=== PATIENT | female | born 1960 | race Caucasian/White ===

== ENCOUNTER → 2020-05-14 07:50 | Outpatient (CLI) | payer BC, SELFPAY ==
--- NOTE | ~2020-05-14 | MMUS_ITS ---
EXAMINATION: MM diagnostic tyrone LT w js, US breast LT limited HISTORY: Rule out benign-appearing left breast masses TECHNIQUE: Additional 3-D tomosynthesis images of the left breast were performed and synthetic 2-D im ages were generated. CAD analysis was submitted and interpreted. High resolution left breast ultrasou nd was performed. COMPARISON: Comparison to multiple prior studies sequentially, with oldest reviewed study dated 11/2014. BREAST PARENCHYMAL COMPOSITION: BREAST PARENCHYMAL COMPOSITION: There are scattered areas of fibroglandular density. FINDINGS: MAMMOGRAPHIC FINDINGS: The left breast is stable. Benign-appearing left breast masses are not significantly changed from rec ent examinations. ULTRASOUND: Left breast ultrasound: There are simple cysts of the left breast at 6 and 9:00 position, largest at 9:00, 5 cm from the nipp le measuring 9 mm maximum dimension. No suspicious masses to suggest malignancy. IMPRESSION: 1. No evidence for malignancy in the left breast. Benign findings. 2. Routine yearly screening mammogram and regular clinical breast examination are recommended. BI-RADS Category 2: Benign finding(s). Reviewed, dictated and finalized at location A. IMPRESSION: 1. No evidence for malignancy in the left breast. Benign findings. 2. Routine yearly screening mammogram and regular clinical breast examination a re recommended. BI-RADS Category 2: Benign finding(s).
== END ==
PROVIDERS: PCP Family Medicine; Visit Provider Obstetrics & Gynecology
DX: R92.8 Other abnormal and inconclusive findings on diagnostic imaging of breast (principal)
CPT/HCPCS: 76642; 77061; 77065; G0279

== ENCOUNTER → 2020-11-26 16:40 | Outpatient (CLI) | payer BC, SELFPAY ==
--- NOTE | ~2020-11-26 | MM_ITS ---
EXAMINATION: MM screening [facility] BI w js HISTORY: Screening mammogram TECHNIQUE: Craniocaudal and mediolateral oblique 3-D tomosynthesis images were obtained and synthetic 2-D images were generated. CAD analysis was submitted and interpreted. COMPARISON: 05/14/2020, 08/23/2019, 08/06/2019, 08/03/2018 BREAST PARENCHYMAL COMPOSITION: The breasts are heterogeneously dense, which may obscure small masses . FINDINGS: Stable left breast masses are noted, consistent with benign findings. There is no evidence of suspicious mass, calcification, or architectural distortion to suggest malignancy in either breast . There has been no suspicious interval change. IMPRESSION: 1. No mammographic evidence of malignancy. 2. Recommend routine screening mammography in one year. BI-RADS Category 2: Benign finding(s). Reviewed, dictated and finalized at location A. BLOWER
== END ==
PROVIDERS: Visit Provider Advanced Practice Midwife
DX: Z12.31 Encounter for screening mammogram for malignant neoplasm of breast (principal)
CPT/HCPCS: 77063; 77067

== ENCOUNTER → 2021-12-03 16:27 | Outpatient (CLI) | payer BC, SELFPAY ==
--- NOTE | ~2021-12-03 | MM_ITS ---
EXAMINATION: MM screening tyrone BI w js HISTORY: Screening TECHNIQUE: Craniocaudal and mediolateral oblique 3-D tomosynthesis images were obtained and synthetic 2-D images were generated. CAD analysis was submitted and interpreted. COMPARISON: Comparison to multiple prior studies sequentially, with oldest reviewed study dated 07/04. BREAST PARENCHYMAL COMPOSITION: The breasts are heterogeneously dense, which may obscure small masses . FINDINGS: Benign-appearing left breast mass is stable. There is no evidence of suspicious mass, calci fication, or architectural distortion to suggest malignancy in either breast. There has been no suspi cious interval change. IMPRESSION: 1. No mammographic evidence of malignancy. 2. Recommend routine screening mammography in one year. BI-RADS Category 2: Benign finding(s). Reviewed, dictated and finalized at location A. ET ENGINEER
== END ==
PROVIDERS: Visit Provider Advanced Practice Midwife
DX: Z12.31 Encounter for screening mammogram for malignant neoplasm of breast (principal)
CPT/HCPCS: 77063; 77067

== ENCOUNTER 2022-03-18 00:12 | Day surgery (SDC) | payer BC, SELFPAY ==
[2022-03-02 14:08] VITALS: BMI 28.4
--- NOTE | 2022-03-17 15:05 | WPDANESEPPF ---
Anes - Initial Pre Proc Eval Procedure: Operation Date: 03/18/22 08:00 Proposed Procedures p Screening Colonoscopy - Kaushik Brown MD Date/Time: 03/17/22 15:05 Surgeon: Kaushik Brown MD Pre Op Diagnosis: neoplasm screening Patient Data Age: 61 Gender: F Height: 1.68 m Weight: 80 kg Allergies Allergy/AdvReac Type Severity Reaction Status Date / Time Penicillins AdvReac Intermediate Other Verified 03/18/22 06:55 Home Medications Medication Instructions Recorded Confirmed Type estradiol 0.01% (0.1 mg/gram) 1 g vaginal WEEKLY 11/05/20 03/02/22 History vaginal cream (Estrace) atorvastatin 10 mg tablet 10 mg PO DAILY #30 tabs 09/23/21 03/02/22 Rx losartan 50 mg tablet 50 mg PO DAILY #90 tabs 01/11/22 03/02/22 Rx ascorbic acid (vitamin C) 500 mg 500 mg PO DAILY 03/02/22 03/02/22 History tablet cholecalciferol (vitamin D3) 25 25 mcg PO DAILY 03/02/22 03/02/22 History mcg (1,000 unit) tablet (Vitamin D3) cetirizine 5 mg-pseudoephedrine ER 1 tablet PO Q12H #60 tabs 03/16/22 03/18/22 Rx 120 mg tablet,extended release,12hr (Zyrtec-D) Patient hx anesthesia problems: none Family hx anesthesia problems: none Results Review: All pre-operative results and documents have been reviewed as part of the pre-operative evaluation. [facility] Past Medical History Medical History (Updated 03/17/22 @ 15:06 by Deandre Lopez MD) BMI 29.0-29.9,adult COVID-19 Essential (primary) hypertension Hyperlipidemia Hypothyroid Overweight (BMI 25.0-29.9) Surgical History Surgical History H/O tubal ligation History of kidney surgery Family History Family History Father CHF (congestive heart failure) Lung cancer Hypertension Thyroid activity decreased Sibling Leukemia Hypertension Mother Hypertension Social History Social History Smoking packs per day: 0.5 Smoking cigarettes per day: 10.0 Years smoked: 8 Smoking pack-years: 4.00 Smoking status: Former smoker Tobacco type: cigarettes Second hand tobacco smoke exposure: Yes Alcohol intake: former Substance use: never Substance use type: does not use Living arrangements: with family Additional occupation/education comments: [employer] Gender identity (if verbalized by the patient): Female Spiritual care concerns: No Anes - Eval Final PreProcedure Day of Procedure 03/17/22 15:05 Patient weight: overweight Heart: regular rate and rhythm Lungs: clear to auscultation and normal air movement Airway: Mallampati scale class II Neurological: alert and oriented Last oral intake: >/= 8 hours ASA classification: II Emergent: no Anesthetic plan: proceed Anesthesia type and monitoring: general GIVS Results Review: All pre-operative results and documents have been reviewed as part of the pre-operative evaluation. Informed Consent: The patient's anesthetic plan and its attendant risks and benefits were discussed with the patient/family/POA. Questions were solicited and answers provided to the satisfaction of the patient/family/POA.
[2022-03-18 06:57] VITALS: BP 149/81; PULSE 86; RESP 20; TEMP 36.2; O2SAT 99; BMI 28.8
[2022-03-18] MEDS: LACTATED RINGERS 1,000 ML 150 ML IV CONT (07:06)
--- NOTE | 2022-03-18 07:45 | PM.IMHP ---
H&P: HPI History of Present Illness Date/Time: 03/18/22 07:45 Chief Complaint: Neoplasia screening. Narrative: This is a 61-year-old white female patient presents for neoplasia screening. Patient's current weight appetite bowel movements are normal. She denies abdominal pain. She has had no bleeding. Family history is noncontributory. Patient presents today for neoplasia screening. Review of Systems Review of Systems: Review of systems noncontributory. [facility] Past Medical History Medical History (Updated 03/17/22 @ 15:06 by Deandre Lopez MD) BMI 29.0-29.9,adult COVID-19 Essential (primary) hypertension Hyperlipidemia Hypothyroid Overweight (BMI 25.0-29.9) Surgical History Surgical History H/O tubal ligation History of kidney surgery Family History Family History Father CHF (congestive heart failure) Lung cancer Hypertension Thyroid activity decreased Sibling Leukemia Hypertension Mother Hypertension Social History Social History Smoking packs per day: 0.5 Smoking cigarettes per day: 10.0 Years smoked: 8 Smoking pack-years: 4.00 Smoking status: Former smoker Tobacco type: cigarettes Second hand tobacco smoke exposure: Yes Alcohol intake: former Substance use: never Substance use type: does not use Living arrangements: with family 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[employer] Gender identity (if verbalized by the patient): Female Spiritual care concerns: No Meds Home Medications and Allergies Home Medications Medication Instructions Recorded Confirmed Type estradiol 0.01% (0.1 mg/gram) 1 g vaginal WEEKLY 11/05/20 03/02/22 History vaginal cream (Estrace) atorvastatin 10 mg tablet 10 mg PO DAILY #30 tabs 09/23/21 03/02/22 Rx losartan 50 mg tablet 50 mg PO DAILY #90 tabs 01/11/22 03/02/22 Rx ascorbic acid (vitamin C) 500 mg 500 mg PO DAILY 03/02/22 03/02/22 History tablet cholecalciferol (vitamin D3) 25 25 mcg PO DAILY 03/02/22 03/02/22 History mcg (1,000 unit) tablet (Vitamin D3) cetirizine 5 mg-pseudoephedrine ER 1 tablet PO Q12H #60 tabs 03/16/22 03/18/22 Rx 120 mg tablet,extended release,12hr (Zyrtec-D) Allergies Allergy/AdvReac Type Severity Reaction Status Date / Time Penicillins AdvReac Intermediate Other Verified 03/18/22 06:55 Vital Signs Vital Signs - 24 hr 03/18/22 06:57 Temperature 97.2 F L Pulse Rate 86 Respiratory Rate 20 Blood Pressure 149/81 H Pulse Oximetry 99 Oxygen Delivery Room Air Exam Narrative: Physical exam reveals patient to be alert. Vital signs stable. HEENT exam is unremarkable. Patient is anicteric. Lungs are clear to auscultation and percussion. Heart is without murmur or extra sounds. Abdominal exam bowel sounds are present soft nontender with no organomegaly. Digital external rectal exam is normal. Assessment and Plan Assessment and plan (1) Screening for malignant neoplasm of colon: Code(s): Z12.11 - Encounter for screening for malignant neoplasm of colon Status: Acute Assessment and Plan: Patient presents today for screening colonoscopy. She appears to be at average risk for colon polyps.
[2022-03-18 08:19] VITALS: PULSE 94; RESP 18; O2SAT 98
[2022-03-18 08:29] VITALS: BP 140/75; PULSE 89; RESP 17; O2SAT 100
[2022-03-18 08:39] VITALS: BP 130/74; PULSE 78; RESP 21; O2SAT 100
== END 2022-03-18 08:48 | disposition home or self-care (01) ==
PROVIDERS: PCP Family Medicine; Referring Provider Nurse Practitioner Family; Visit Provider Internal Medicine Gastroenterology
PROC: 0DJD8ZZ Inspection of Lower Intestinal Tract, Via Natural or Artificial Opening Endoscopic (ICD-10-PCS; CPT 45378; principal; 2022-03-18 08:00)
DX: Z12.11 Encounter for screening for malignant neoplasm of colon (principal); K64.8 Other hemorrhoids; I10 Essential (primary) hypertension; E78.5 Hyperlipidemia, unspecified; E03.9 Hypothyroidism, unspecified; Z86.16 Personal history of COVID-19; Z87.891 Personal history of nicotine dependence
CPT/HCPCS: 45378; J2704; J7120

== ENCOUNTER → 2022-09-08 15:55 | Outpatient (CLI) | payer BC, SELFPAY ==
--- NOTE | ~2022-09-08 | DEXA_ITS ---
Bone Density Report Name: PATRICIO ALVAREZ Age: 61 Sex: Female Ethnicity: White Date of : 1960 Indication: osteopenia; height loss; postmenopausal Referring Provider: Jasmyn Baeza Study: Bone densitometry was performed. Exam Date: September 08, 2022 Accession number: [id number] Bone Density: Region BMD T-score Z-score Classification AP Spine (L1-L4) 0.855 -1.7 -0.1 Osteopenia Femoral Neck (Left) 0.758 -0.8 0.6 Normal Total Hip (Left) 0.928 -0.1 1.0 Normal Femoral Neck (Right) 0.736 -1.0 0.4 Normal Total Hip (Right) 0.903 -0.3 0.8 Normal Total Hip Mean 0.916 -0.2 0.9 Normal World Health Organization criteria for BMD impression classify patients as: Normal (T-score at or above -1.0), Osteopenia (T-score between -1.0 and -2.5), or Osteoporosis (T-score at or below -2.5). 10-year Fracture Risk(1): Major Osteoporotic Fracture 7.5% Hip Fracture 0.5% Reported Risk Factors: [place] (), Neck BMD=0.736, BMI=30.8 (1) FRAX(R) Version 3.08. Fracture probability calculated for an untreated patient. Fracture probability may be lower if the patient has received treatment. Previous Exams: Region Exam Age BMD T-score BMD Change BMD Change Date g/cm2 vs Baseline vs Previous AP Spine(L1-L4) 09/08/2022 61 0.855 -1.7 -0.066* -0.066* 04/01/2013 52 0.921 -1.1 Total Hip(Left) 09/08/2022 61 0.928 -0.1 0.026 0.026 04/01/2013 52 0.902 -0.3 Total Hip(Right) 09/08/2022 61 0.903 -0.3 0.032* 0.032* 04/01/2013 52 0.871 -0.6 *Denotes significance at 95% confidence level, LSC for AP Spine = 0.022 g/cm2, LSC for Total Hip = 0.027 g/cm2 Clinical Information Provided by Patient: Has used the following medications: Vitamin D Patient maximum height was 66.5 Menopause Age: 50 No regular weight bearing exercise Drinks caffeinated beverages Onset of menses at age 12 Number of children 1 Impression: The patient has low bone mass, based on the Total Spine T-score. The patient has an estimated ten-year risk of hip fracture of 0.5% and an estimated ten-year risk of major fracture of 7.5%, based on the WHO FRAX algorithm. The BMD for the AP Spine(L1-L4) decreased, changing by -0.066 since the last DXA exam. Discussion: BONE DENSITY IS LOW AT ONE OR MORE SKELETAL SITES. This patient's lowest T-score is low at one or more skeletal sites. It meets the World Health Organization's (WHO) crit
== END ==
PROVIDERS: PCP Family Medicine; Visit Provider Obstetrics & Gynecology
DX: M81.0 Age-related osteoporosis without current pathological fracture (principal); M85.88 Other specified disorders of bone density and structure, other site
CPT/HCPCS: 77080

== ENCOUNTER → 2022-12-05 15:56 | Outpatient (CLI) | payer BC, SELFPAY ==
--- NOTE | ~2022-12-05 | MM_ITS ---
EXAMINATION: MM screening [facility] BI w js HISTORY: Screening mammogram TECHNIQUE: Craniocaudal and mediolateral oblique 3-D tomosynthesis images were obtained and synthetic 2-D images were generated. CAD analysis was submitted and interpreted. COMPARISON: 12/03/2021, 11/26/2020 BREAST PARENCHYMAL COMPOSITION: There are scattered areas of fibroglandular density. FINDINGS: Again noted are stable left breast masses, considered benign given the lack of interval elvin nge. No suspicious mass, calcification, or architectural distortion are identified in either breast t o suggest malignancy. There has been no suspicious interval change. IMPRESSION: 1. No mammographic evidence of malignancy. 2. Recommend routine screening mammography in one year. BI-RADS Category 2: Benign finding(s). Reviewed, dictated and finalized at location A. L SECURITY OFFICER
== END ==
PROVIDERS: PCP Family Medicine; Visit Provider Advanced Practice Midwife
DX: Z12.31 Encounter for screening mammogram for malignant neoplasm of breast (principal)
CPT/HCPCS: 77063; 77067

== ENCOUNTER 2023-12-22 16:14 | Outpatient (CLI) | payer BC, SELFPAY ==
--- NOTE | ~2023-12-22 | MM_ITS ---
EXAMINATION: MM screening [facility] BI w js HISTORY: Screening mammogram TECHNIQUE: Craniocaudal and mediolateral oblique 3-D tomosynthesis images were obtained and synthetic 2-D images were generated. CAD analysis was submitted and interpreted. COMPARISON: 12/05/2022, 11/2021 bilateral screening mammogram examinations BREAST PARENCHYMAL COMPOSITION: There are scattered areas of fibroglandular density. FINDINGS: There is an 8mm mass in the anterior lower left breast on MLO view (MLO Tomosynthesis image 49/81). Diagnostic left mammogram and left breast ultrasound examination are recommended. Otherwise no suspicious mass, architectural distortion, malignant calcification, skin thickening or r etraction of either breast is detected. IMPRESSION: 1. 8mm mass, left breast 2. Diagnostic left mammogram and left breast ultrasound examination are recommended BI-RADS Category 0: Incomplete: Needs additional imaging evaluation. Reviewed, dictated and finalized at location A. IMPRESSION: 1. 8mm mass, left breast 2. Diagnostic left mammogram and left breast ultrasound examination are recomme nded BI-RADS Category 0: Incomplete: Needs additional imaging evaluation.
== END 2023-12-22 16:15 ==
PROVIDERS: Visit Provider Nurse Practitioner Obstetrics & Gynecology
DX: Z12.31 Encounter for screening mammogram for malignant neoplasm of breast (principal); R92.8 Other abnormal and inconclusive findings on diagnostic imaging of breast
CPT/HCPCS: 77063; 77067

== ENCOUNTER 2024-01-26 07:43 | Outpatient (CLI) | payer BC, SELFPAY ==
--- NOTE | ~2024-01-26 | MMUS_ITS ---
EXAMINATION: MM diagnostic tyrone LT w js, US breast LT complete HISTORY: 8 mm mass, anterior lower left breast on screening MLO view of 12/22/2023 TECHNIQUE: Additional 3-D tomosynthesis images of the left breast were performed and synthetic 2-D im ages were generated. CAD analysis was submitted and interpreted. High resolution complete left breast ultrasound examination clinical 4 quadrants and subareolar area was performed. COMPARISON: 12/22/2023 bilateral screening mammogram FINDINGS: MAMMOGRAPHIC FINDINGS: An approximately 7 mm circumscribed opacity is noted in the lower inner left breast. ULTRASOUND: 8:00 4 cm from nipple: Septated 6.6 x 13.6 x 9.6 mm cyst with through transmission and posterior enha ncement, no internal vascularity, benign in appearance. 3:00 7 cm from nipple: 2.9 mm cyst IMPRESSION: 1. Benign findings 2. Routine annual mammographic screening is recommended BI-RADS Category 2: Benign finding(s). Reviewed, dictated and finalized at location A. IMPRESSION: 1. Benign findings 2. Routine annual mammographic screening is recommended BI-RADS Category 2: Benign finding(s).
== END 2024-01-26 07:44 ==
LOC: MICIMG 07:44
PROVIDERS: PCP Nurse Practitioner; Visit Provider Nurse Practitioner
DX: N63.20 Unspecified lump in the left breast, unspecified quadrant (principal)
CPT/HCPCS: 76641; 77061; 77065; G0279

== ENCOUNTER 2024-11-22 07:13 | Outpatient (CLI) | payer BC, SELFPAY ==
--- NOTE | ~2024-11-22 | DEXA_ITS ---
Bone Density Report Name: PATRICIO ALVAREZ Age: 64 Sex: Female Ethnicity: White Date of : 1960 Indication: postmenopausal; screening for osteoporosis; height loss; Referring Provider: MARIO WITT Study: Bone densitometry was performed. Exam Date: November 22, 2024 Accession number: [id number] Bone Density: Region BMD T-score Z-score Classification AP Spine(L1-L4) 0.826 -2.0 -0.2 Osteopenia Femoral Neck (Left) 0.718 -1.2 0.4 Osteopenia Total Hip (Left) 0.900 -0.3 0.9 Normal Femoral Neck (Right) 0.741 -1.0 0.6 Normal Total Hip (Right) 0.894 -0.4 0.9 Normal Total Hip Mean 0.897 -0.4 0.9 Normal World Health Organization criteria for BMD impression classify patients as: Normal (T-score at or above -1.0), Osteopenia (T-score between -1.0 and -2.5), or Osteoporosis (T-score at or below -2.5). 10-year Fracture Risk(1): Major Osteoporotic Fracture 8.2% Hip Fracture 0.7% Reported Risk Factors: [place] (), Neck BMD=0.718, BMI=31.8 (1) FRAX(R) Version 3.08. Fracture probability calculated for an untreated patient. Fracture probability may be lower if the patient has received treatment. Clinical Information Provided by Patient: Has used the following medications: Vitamin D Patient maximum height was 66 Menopause Age: 48 No regular weight bearing exercise Drinks caffeinated beverages Onset of menses at age 11 Number of children 1 Impression: The patient has low bone mass, based on the Total Spine T-score. The patient has an estimated ten-year risk of hip fracture of 0.7% and an estimated ten-year risk of major fracture of 8.2%, based on the WHO FRAX algorithm. Discussion: BONE DENSITY IS LOW AT ONE OR MORE SKELETAL SITES. This patient's lowest T-score is low at one or more skeletal sites. It meets the World Health Organization's (WHO) criteria for ?low bone mass? (T-score between -1.0 and -2.5). The patient's 10-year risk of fracture as calculated by FRAX is less than the threshold where pharmacological therapy is recommended by the National Osteoporosis Foundation (NOF). However, all treatment decisions require clinical judgment and consideration of individual patient factors, including patient preferences, comorbidities, previous drug use, risk factors not captured in the FRAX model (e.g., frailty, falls, vitamin D deficiency, increased bone turnover, interval significant decline in bone density) and possible under or overestimation of fracture risk by FRAX. The patient should follow a healthful lifestyle (good nutrition with adequate calcium and vitamin D, and appropriate weight-bearing exercise). Follow-Up: Consider repeating this study in 2 to 3 years to reassess this patient's status, or sooner if there is some new clinical indication. Reported by: LISA on 11/22/2024 7:54:00 AM. Reviewed, dictated and finalized at location A. SUMEET
--- OUTSIDE RECORDS SUMMARY | 2024-11-22 07:22 | XMS_ITS | Data Portability ---
Author Organization [facility] Address [address] [place] [address] Care Team Providers Care Anesthetic Assistant Name Role Phone TAVON GANN Primary Care Provider KAREN LOVE Primary Care Provider [phone] Assessment Encounter Date Assessment Date Assessment LastModified by Organization Details LastModified Time 12/23/2022 12/23/2022 Annual gynecological exam performed. Patient will come back in a year unless there are new symptoms. [email or web address] Not available 12/23/2022 09:49:44 04/29/2024 04/29/2024 Annual gynecological exam performed. Patient will come back in a year unless there are new symptoms. Not available 04/29/2024 09:05:19 Plan of Treatment Reminders Order Date Submit Date Provider Last Modified By Organization Details Last Modified Time Details Appointments None recorded. Lab None recorded. Referral None recorded. Procedures None recorded. Surgeries None recorded. Imaging DEXA, axial skeleton + vertebral fracture assessment 2023 024 [facility], [address], [place], [address], 05:01:23 Medication Orders None recorded. Patient TargetsNo targets recorded. Patient InstructionsNo instructions recorded. Reason for Referral None Reported. Results Created Date Observation Date Name Description Value Unit Range Abnormal Flag Note LastModifiedBy Organization Detail LastModifiedTime 12/07/1912/06/2021 IMAGE GUIDE D PAP AND HPV REGAR DLESS image guided Pap, HPV regardless of Pap result SEE RESULT S BELOW CASE REPOR T: Cytol ogy Gynec ologi candice Repor t Case: [id number] Autho gladis coleman Provi braulio: Nora Wise CNM Colle cted: 12/06 1640 Order ing Locat ion: [place] Patho logy Recei dameon: 12/07 0213 First Scree n: Nacharnold mpasadaf ak, Sivil ay, CT Rescr een: Chasity Cervantes ret, CT Speci men: Scree tor Pap - Image d, Cervi x STATE MENT OF ADEQU ACY: Satis facto ry for evalu ation Trans forma tion zone compo nent prese nt FINAL DIAGN OSIS: Negat emeka for Intra epith elial Darío anderson or Dina kumar (NIL) . Elect ti farooq vane d by Chasity Cervantes ret, CT on 2021 at 6:11 AM ----- ----- ----- ----- ----- ----- ----- ----- ----- ----- ----- ----- ----- ----- ----- ----- ----- ---- HPV RESUL TS: HPV mRNA E6/E7 : No HPV mRNA Detec samantha NOTE: This high risk HPV mRNA assay detec ts fourt een high- risk HPV types (16, 18, 31, 33, 35, 39, 45, 51, 52, 56, 58, 59, 66, 68) witho ut diffe renti ation . COMME NT: Note: This speci men was revie wed by a Cytot echno logis t and/o r Patho logis t (as indic ated in this repor t) after evalu ation using the Thinp rep Imagi ng Syste m. CLINI CANDICE INFOR MATIO N: Menst rual Statu s: LMP (if appli cable ): 10/02 Clini candice Histo ry/Pr eviou s Pap: Type of Neopl mine (if appli cable ): Signi driss t Clini candice Findi ngs: Routi ne Other Histo ry: Hormo gillian (if appli cable ): PAP EDUCA STEPHANIE L NOTE: The Pap Test is a scree tor test with an inher ent false negat emeka rate. Liqui d-bas ed sampl ing may decre ase, but will not elimi jose cruz, false negat emeka resul ts. A negat emeka resul t does not precl ude the prese nce and/o r devel opmen t of disea se, since the prese nce of abnor mal cells in the sampl e depen ds on the locat ion of the lesio n and sampl ing techn ique. Amy nued regul ar scree tor is the best metho d of cance r preve ntion . If repor samantha cytol ogic findi ng do not corre late with physi candice and/o r histo rical findi ngs, furth er inves tigat ion is recom justin d, as clini bernabe macias nted. 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 Elect ti farooq vane d by Chasity Cervantes ret, CT on 2022 at 10:28 AM ----- ----- ----- ----- ----- ----- ----- ----- ----- ----- ----- ----- ----- ----- ----- ----- ----- ---- HPV RESUL TS: HPV mRNA E6/E7 : No HPV mRNA Detec samantha NOTE: This high risk HPV mRNA assay detec ts fourt een high- risk HPV types (16, 18, 31, 33, 35, 39, 45, 51, 52, 56, 58, 59, 66, 68) witho ut diffe renti ation . COMME NT: This speci men was revie wed by a Cytot echno logis t and/o r Patho logis t (as indic ated in this repor t) after evalu ation using the Thinp rep Imagi ng Syste m. CLINI CANDICE INFOR MATIO N: Menst rual Statu s: LMP (if appli cable ): Clini candice Histo ry/Pr eviou s Pap: Type of Neopl mine (if appli cable ): Signi fican t Clini candice Findi ngs: Other Histo ry: Hormo gillian (if appli cable ): PAP EDUCA STEPHANIE L NOTE: The Pap Test is a scree tor test with an inher ent false negat emeka rate. Liqui d-bas ed sampl ing may decre ase, but will not elimi jose cruz, false negat emeka resul ts. A negat emeka resul t does not precl ude the prese nce and/o r devel opmen t of disea se, since the prese nce of abnor mal cells in the sampl e depen ds on the locat ion of the lesio n and sampl ing techn ique. Amy nued regul ar scree tor is the best metho d of cance r preve ntion . If repor samantha cytol ogic findi ng do not corre late with physi candice and/o r histo rical findi ngs, fur er inves tigat ion is recom justin d, as clini bernabe macias nted. Not Available [facility] (Lab) [address], [place], [address], 12/28/2022 11:31:39 04/29/20 24 04/29/2024 IMAGE GUIDE D PAP AND HPV REGAR DLESS image guided Pap, HPV regardless of Pap result SEE RESULT S BELOW CASE REPOR T: Cytol ogy Gynec ologi candice Repor t Case: [id number] Autho gladis jared Provi braulio: Aimee De La Fuente, SHARAD Colle cted: 04/29 0946 Order ing Locat ion: [place] Patho [place]y Recei dameon: 04/30 0719 First Hector n: Maria Del Rosario Man , CT Rescr een: Ursula Abreu Specaminah men: Hector lentz Pap - Image d, Cervi x STATE MENT OF ADEQU ACY: Satis facto ry for evalu ation Trans forma tion zone compo nent absen t The absen ce of an endoc ervic al compo nent was confi rmed by an addit ional hector ner. ----- ----- ----- ----- ----- ----- ----- ----- ----- ----- ----- ----- ----- ----- ----- ----- ----- ---- FINAL DIAGN OSIS: Negat emeka for Intra epith reina anderson or Dina kumar ([facility]) . Elect ti groves by Ursula Abreu on 024 at 7:30 PM ----- ----- ----- ----- ----- ----- ----- ----- ----- ----- ----- ----- ----- ----- ----- ----- ----- ---- HPV RESUL TS: HPV mRNA E6/E7 : No HPV mRNA Detec samantha NOTE: This high risk HPV mRNA assay detec ts fourt een high- risk HPV types (16, 18, 31, 33, 35, 39, 45, 51, 52, 56, 58, 59, 66, 68) witho ut diffe renti ation . COMME NT: This speci men was revie wed by a Cytot echno logis t and/o r Patho logis t (as indic ated in this repor t) after evalu ation using the Thinp rep Imagi ng Syste m. CLINI CANDICE INFOR MATIO N: Menst rual Statu s: LMP (if appli cable ): Clini candice Histo ry/Pr eviou s Pap: Type of Neopl mine (if appli cable ): Signi fican t Clini candice Findi ngs: Other Histo ry: Hormo gillian (if appli cable ): PAP EDUCA STEPHANIE L NOTE: The Pap Test is a scree tor test with an inher ent false negat emeka rate. Liqui d-bas ed sampl ing may decre ase, but will not elimi jose cruz, false negat emeka resul ts. A negat emeka resul t does not precl ude the prese nce and/o r devel opmen t of disea se, since the prese nce of abnor mal cells in the sampl e depen ds on the locat ion of the lesio n and sampl ing techn ique. Amy nued regul ar scree tor is the best metho d of cance r preve ntion . If repor samantha cytol ogic findi ng do not corre late with physi candice and/o r histo rical findi ngs, furth er inves tigat ion is recom justin d, as clini bernabe warra nted. Not Available [facility] ([facility]) [address], [place], [address], 05/06/2024 20:34:30 11/27/19 21 11/26/2020 MAMMO , scree tor, bilat eral No observ ation record ed. [facility] [address], [place], [address], 12/15/2020 13:16:45 12/06/19 22 12/03/2021 MAMMO , scree tor, bilat eral No observ ation record ed. [facility] [address], [place], [address], 12/06/2021 17:51:03 09/09/20 22 09/08/2022 DEXA No observ ation record ed. [email or web address] [facility] [address], [place], [address], 09/30/2022 12:15:31 12/07/19 23 12/05/2022 imagi ng/di agnos tic resul t No observ ation record ed. [facility] [address], [place], [address], 12/09/2022 12:03:26 12/25/19 24 12/22/2023 MAMMO , scree tor, bilat eral No observ ation record ed. [facility] [address], [place], [address], 12/26/2023 17:22:28 12/25/19 24 12/22/2023 MAMMO , scree tor, bilat eral No observ ation record ed. [email or web address] [facility] [address], [place], [address], 01/24/2024 12:04:07 01/26/20 24 01/26/2024 MAMMO , diagn ostic , digit al, unila teral No observ ation record ed. [facility] [address], [place], [address], 02/16/2024 11:04:25 01/26/20 24 01/26/2024 US, breas t, unila teral No observ ation record ed. SHARAD Not Available 2023 11:04:25 01/26/20 24 01/26/2024 MAMMO , diagn ostic , digit al, unila teral No observ ation record ed. SHARAD [facility] [address], [place], [address], 02/16/2024 11:04:26 01/26/20 24 01/26/2024 US, breas t, unila teral No observ ation record ed. SHARAD Not Available 2023 11:04:26 Result Notes None recorded. Problems Name Problem SNOMED Code Status Onset Date Resolution Date Notes Provider Name and Address Organization Details Recorded Time Screenin g for malignan t neoplasm of cervix Completed 201011/20/2020 Screenin g for malignan t neoplasm s of the cervix;R ecorded Elsewher e: No Locat ion: [facility] S ource: EHR Health Information Assistant carlos: N Jessica ce ID: 0001 Calvin lable Time: 09:30:00 AM Tere munoz [facility] 1 11:59:[address] Concept Completed 201811/20/2020 Encntr for general adult medical exam w/o abnormal findings ;Recorde d Elsewher e: No Locat ion: [facility] S ource: EHR Health Information Assistant carlos: N Jessica ce ID: 0001 Calvin lable Time: 08:45:00 AM Tere munoz, [facility] 1 12:00:04 Speciali zed medical examinat ion Completed 201011/20/2020 Gynecolo gical Examinat ion;Gorge rded Elsewher e: No Locat ion: [facility] S ource: EHR Health Information Assistant carlos: N Flashti ce ID: 0001 Calvin lable Time: 09:30:00 AM Tere munoz [facility] 1 12:00:11 Screenin g for malignan t neoplasm of rectum Completed 201711/20/2020 Encounte r for screenin g for malignan t neoplasm of rectum;R ecorded Elsewher e: No Locat ion: [facility] S ource: EHR Health Information Assistant carlos: N Flashti ce ID: 0001 Calvin lable Time: 08:30:00 AM Tere munoz [facility] 1 12:00:06 Removal of intraute rine device Completed 201011/20/2020 REMOVAL OF IUD;Prac yamil ID: 0001 Tere munoz, [facility] 1 12:00:13 Microsco pic hematuri a [id number] Completed 201011/20/2020 HEMATURI A MICROSCO PIC;Prac yamil ID: 0001 Tere Shukla [facility], [facility] 1 12:00:14 Adult health examinat ion Completed 201111/20/2020 Routine general medical examinat ion at a health care facility ;Practic e ID: 0001 Tere Sh[facility], [facility] 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 1 12:00:09 Disorder of skin and/or subcutan eous tissue 45362910 Completed 201511/20/2020 Disorder of the skin and subcutan eous tissue, unspecif ied;Gorge rded Elsewher e: No Locat ion: [facility] S ource: EHR Health Information Assistant carlos: N Flashti ce ID: 0001 Calvin lable Time: 09:30:00 AM Tere munoz, [facility] 11:59:54 Acute vulvitis [id number] Completed 201411/20/2020 Vulvitis ;Recorde d Elsewher e: No Locat ion: [facility] S ource: EHR Health Information Assistant carlos: N Practi ce ID: 0001 Calvin lable Time: 08:15:00 AM Tere munoz, [facility] 11:59:[address] Concept Completed 201411/20/2020 Well woman check w/ abnormal finding; Recorded Elsewher e: No Locat ion: [facility] S ource: EHR Health Information Assistant carlos: N Practi ce ID: 0001 Calvin lable Time: 08:15:00 AM Tere munoz, [facility] 12:00:07 Benign neoplasm of vulva 24335928 Completed 201511/20/2020 Benign neoplasm of vulva;Pr actice ID: 0001 Tere munoz, [facility] 11:59:53 Mass of left breast [id number] 560809 Completed 201911/20/2020 Unspecif ied lump in the left breast, unspecif ied quadrant ;Practic e ID: 0001 Tere Sh[facility], [facility] 11:59:56 Asymptom atic microsco pic hematuri a [id number] 549491 Completed 201911/20/2020 Asymptom atic microsco pic hematuri a;Practi ce ID: 0001 Tere Sh[facility], [facility] 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 Procedures Surgical History Date Name Laterality Status Provider Name and Address Organization Details Recorded Time 09/08/20 22 [facility]/23/2022 09:50:13 12/07/19 22 Date of Last Pap Smear completed Catie Marinolian [facility] 12/23/2022 09:51:26 12/07/19 22 colonoscopy completed [facility] Brock [facility] [address], [place], [address], [facility] 12/23/2022 10:02:15 10/02/19 22 [facility] 12/[facility]2022 09:50:13 10/02/19 22 Date of Last Colonoscopy completed [facility] 12/23/2022 09:50:13 10/02/18 84 ligation of bilateral fallopian tubes completed Tere Shukla [facility] 11/20/2020 12:22:57 procedure on kidney completed [facility]lysa Brock [facility] [address], [place], [address], [facility] 12/23/2022 10:00:40 Imaging Results Imaging Date Name Status LastModified by Organiz ation Details LastModified Time 11/26/2020 MAMMO, screening, bilateral completed [facility] [address], [place], [address], 12/15/2020 13:16:45 12/03/2021 MAMMO, screening, bilateral completed [facility] [address], [place], [address], 12/06/2021 17:51:03 09/08/2022 DEXA completed [email or web address] [facility] [address], [place], [address], 09/30/2022 12:15:31 12/05/2022 imaging/diagnos tic result completed [facility] [address], [place], [address], 12/09/2022 12:03:26 12/22/2023 MAMMO, screening, bilateral completed [facility] [address], [place], [address], 12/26/2023 17:22:28 12/22/2023 MAMMO, screening, bilateral completed [email or web address] [facility] [address], [place], [address], 01/24/2024 12:04:07 01/26/2024 MAMMO, diagnostic, digital, unilateral completed [facility] [address], [place], [address], 02/16/2024 11:04:25 01/26/2024 US, breast, unilateral completed [email or web address] Information not available 02/16/2024 11:04:25 01/26/2024 MAMMO, diagnostic, digital, unilateral completed [facility] [address], [place], [address], 02/16/2024 11:04:26 01/26/2024 US, breast, unilateral completed SHERIDAN Information not available 02/16/2024 11:04:26 Procedure Notes None recorded. Medical Equipment None Reported. Allergies Allergen ID Allergen Name Allergen Category Reaction Reaction Severity Criticality Documentation Date Start Date Code Code System Note Provider Name and Address Organization Details Recorded Time 68219 Product containin g penicilli n (product) medicatio n Not available Not available Not available 09/18/2020 51197 8001 SNOMED Tere munoz [place] - [facility] 12:06:53 Medications Name Sig Start Date Stop Date Status Note LastModified by Organization Details LastModified Time losartan 50 mg tablet take 1 tablet by oral route every day active Not Available Not Available No t Available Zyrtec-D 5 mg-120 mg tablet,ex tended release TAKE 1 TABLET BY MOUTH EVERY 12 HOURS active Not Available Not Available No t Available atorvasta tin 10 mg tablet TAKE 1 TABLET BY MOUTH ONCE DAILY active Not Available Not Available No t Available azithromy shy 250 mg tablet TAKE 2 TABLETS BY MOUTH ON DAY 1, AND THEN TAKE 1 TABLET BY MOUTH ONCE A DAY ON DAY 2 THROUGH DAY 5 04/29 completed Not Available Not Available Not Available triamcino lone acetonide 0.025 % topical cream 12/06 completed Not Available Not Available Not Available benzonata te 100 mg capsule TAKE 1 CAPSULE BY MOUTH THREE TIMES DAILY NEEDED FOR COUGH 04/29 completed Not Available Not Available Not Available cephalexi n 500 mg capsule TAKE ONE CAPSULE USE WITHIN HOUR OF INTERCOU RSE active Not Available Not Available No t Available tacrolimu s 0.1 % topical ointment 12/06 completed Not Available Not Available Not Available monteluka st 10 mg tablet TAKE 1 TABLET BY MOUTH EVERY DAY AT BEDTIME active Not Available Not Available No t Available estradiol 0.01% (0.1 mg/gram) vaginal cream INSERT 1 MG VAGINALL Y TWICE A WEEK active Not Available Not Available No t Available methylpre dnisolone 4 mg tablets in a dose pack TAKE BY MOUTH DIRECTED ON INSIDE OF PACKAGE 04/29 completed Not Available Not Available Not Available albuterol sulfate HFA 90 mcg/actua tion aerosol inhaler INHALE 2 PUFFS BY MOUTH EVERY 4 TO 6 HOURS NEEDED FOR SHORTNES S OF BREATH OR WHEEZING active Not Available Not Available No t Available Vitamin D2 1,250 mcg (50,000 unit) capsule take 1 capsule (94473KM ITS) by oral route every week 11/18 completed Prescrib jesica Weaver e: No Locat ion: [facility] odify By: chris watkins DateTime : 09/13/20 13 12:16:16 PM Not Available Not Available Not Available clobetaso l 0.05 % scalp solution APPLY SOLUTION TOPICALL Y ONCE DAILY active Not Available Not Available No t Available cefdinir 300 mg capsule TAKE 1 CAPSULE BY MOUTH EVERY 12 HOURS FOR 10 DAYS 04/29 completed Not Available Not Available Not Available Vitamin C 500 mg capsule,e xtended release 2021 active Not Available Not Available Not Avai lable Infuvite Adult 3300 unit-150 mcg/10 mL intraveno us solution 08/29 completed Prescrib ed Elsewher e: Yes Loca tion: [facility] odify By: [email or web address] Encounte r DateTime : 08/27/20 11 05:06:59 PM Not Available Not Available Not Available Vitamin D3 50 mcg (2,000 unit) tablet 12/06 completed Prescrib ed Elsewher e: Yes Loca tion: [facility] odify By: haroon jiménez DateTime : 11/15/19 08:45:00 AM Not Available Not Available Not Available Zyrtec 10 mg capsule 12/06 completed Prescrib ed Elsewher e: Yes Loca tion: [facility] odify By: jg Byers [email or web address] DateTime : 08/27/20 11 05:06:59 PM Not Available Not Available Not Available Vitamin D3 50 mcg (2,000 unit) capsule Take 1 capsule every day by oral route. active Not Available Not Available No t Available Vitals Date Recorded Body height Body mass index (BMI) Body weight Systolic blood pressure Diastolic blood pressure Systolic blood pressure Diastolic blood pressure Provider Name and Address Organization Details Last Updated DateTime 2 170.18 cm 28.8 kg/m2 93896 g 163 mm[Hg] 70 mm[Hg] 144 mm[Hg] 85 mm[Hg] Tere Shukla [facility] 2 16:34:50 Date Recorded Body height Body mass index (BMI) Body weight Provider Name and Address Organization Details Last Updated DateTime 12/23/2022 170.18 cm 28.8 kg/m2 64051.28 g Catie Schilling [facility] 12/23/2022 09:50:04 Date Recorded Systolic blood pressure Diastolic blood pressure Provider Name and Address Organization Details Last Updated DateTime 12/23/2022 133 mm[Hg] 80 mm[Hg] RAVI Tang- [address], [place], [address], [facility] 12/23/2022 09:55:03 Date Recorded Body height Body mass index (BMI) Body weight Systolic blood pressure Diastolic blood pressure Provider Name and Address Organization Details Last Updated DateTime 04/29/2024 170.18 cm 29.6 kg/m2 76460.96 g 133 mm[Hg] 84 mm[Hg] Yuridia Nivia [facility] 4 09:06:48 Date Recorded Body height Body mass index (BMI) Body weight Systolic blood pressure Diastolic blood pressure Systolic blood pressure Diastolic blood pressure Provider Name and Address Organization Details Last Updated DateTime 170.18 cm 28.3 kg/m2 46420.2 2 g 158 mm[Hg] 82 mm[Hg] 156 mm[Hg] 83 mm[Hg] Tere Belloan [facility] 18:00:39 Social History Question Answer Notes LastModified by Organizat ion Details LastModified Time Tobacco Smoking Status Never Smoker Oly Daniels alexander, [facility] 12/23/2022 09:35:38 Do You Have An Advance Directive? No [email or web address] Information n ot available 12/06/2021 What Is Your Level Of Alcohol Consumption? None Information not available 04/29/2024 Are You Blind Or Do You Have Difficulty Seeing? No [email or web address] Information n ot available 12/06/2021 What Is Your Level Of Caffeine Consumption? Occasional Information not available 04/29/2024 How Much Tobacco Do You Chew? None [email or web address] Information not available 12/06/2021 In The 14 Days Before Symptom Onset, Have You Had Close Contact With A Laboratory-confirm ed COVID-19 While That Case Was Ill? No Information n ot available 12/06/2021 In The 14 Days Before Symptom Onset, Have You Had Close Contact With A Person Who Is Under Investigation For COVID-19 While That Person Was Ill? No [email or web address] Information not available 12/06/2021 Have You Been To An Area Known To Be High Risk For COVID-19? No Information not available 12/06/2021 Are You Deaf Or Do You Have Serious Difficulty Hearing? No [email or web address] Information not available 12/06/2021 What Type Of Diet Are You Following? 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 No [email or web address] Information not available 12/06/2021 Do You Use Your Seat Belt Or Car Seat Routinely? Yes [email or web address] Information not available 12/06/2021 Do You Have Smoke And Carbon Monoxide Detectors In Your Home? Yes Information not available 12/06/2021 How Much Tobacco Do You Smoke? No [email or web address] Information not available 12/06/2021 Do You Feel Stressed (tense, Restless, Nervous, Or Anxious, Or Unable To Sleep At Night)? [id number] [email or web address] Information not available 12/06/2021 Do You Use Any Illicit Or Recreational Drugs? No [email or web address] Information not available 12/06/2021 Do You Use Sunscreen Routinely? No [email or web address] Information not available 12/06/2021 Have You Used IV Drugs? No [email or web address] Information not available 12/06/2021 Sex: Unknown Functional Status Question Answer Note LastModified by Organizat ion Details LastModified Time Do you have difficulty walking or climbing stairs? No Information not available 12/23/2022 Are you able to walk? YESWOREST [email or web address] Information not available 12/06/2021 Are you able to care for yourself? Yes Information not available 12/23/2022 Do you have difficulty dressing or bathing? No Information not available 12/23/2022 What is your exercise level? Occasional Information not available 12/23/2022 Mental Status None recorded. Family History Relationship Description Onset Age of this Age Resolved Age Notes LastModified by Organization Details LastModified Time Father Congenital heart disease [email or web address] Not available 2023 09:00:18 Maternal Grandmother Malignant tumor of breast [email or web address] Not available 2020 12:22:28 Medical History Condition Response Allergies (Food, seasonal, environmental ) N Other Y Drug/Latex Allergies/Reactions N Breast Cancer N Blood Transfusion N Lung Disease N Dermatologic Disorders N Defects or Inherited Disease N Breast Problem N Gestational Diabetes N Hematologic disorders N Anesthesia Complications N History of STI N Deep Vein Thrombosis N Polycystic ovary syndrome N Anxiety Disorder N Autoimmune disease N Arthritis N Polyps N Infertility N Acid Reflux (GERD) N History of abnormal pap N Cancer N Varicosities N Stroke N Neurologic/Epilepsy N Endometriosis N High Cholesterol Y Fibromyalgia N Headaches N Kidney Disease N Heart Problems N Thyroid Problems N Kidney or Bladder Problems N GI Problems N Eating Disorder N Anemia N Art (IVF or FET) N Psychiatric Illness N Ovarian Cancer N Diabetes N Pulmonary (TB, Asthma) N Hepatitis/Liver Disease N No Past Medical History N Eczema N Urinary Tract Infection N Abuse/Domestic Violence N Asthma N Trauma/Violence N Depression/ depression N Heart Disease N Pre-Eclampsia N Hypertension Y Osteoporosis N Thrombophilias N Gynecological History Statement/Question Response Abnormal Pap N Date of Last Mammogram On BCP's at Conception? N Was last menstrual period normal Y STIs/STDs N HPV Vaccine N Colposcopy Current Control Method Tubal Ligat ion Age at First Child 21 Are cycles usually normal N Date of Last Colonoscopy 10/02/2021 Most Recent Bone Density 09/08/2022 Sexually Active? Y Menses Monthly N Age of first menstrual cycle 10 Date of Last Pap Smear 12/06/2021 Sexual Problems? N LMP Unknown 10/02/2021 N Obstetrics History GPAL:G 1 P 1 0 0 1 Type Value Full Term 1 Living 1 Total 1 Past Encounters Encounter ID Performer Location Encounter Start Date Encounter Closed Date Diagnosis/Indication Diagnosis SNOMED-CT Code Diagnosis ICD10 Code Diagnosis Note [id number] Nora Adamaris [place] [address] [address] 11/23/2020 17:43:03 11/25/2020 15:29:28 Gynecologic examination 05942669 Z01.419 Take Calcium with Vitamin D 12-1500mg daily. Do monthly self breast exams. It is advised to get annual flu shot in the fall and she could obtain at [facility] or [facility] clinic. If you haven't received the Tdap vaccine in the last 10 years you should obtain one as well. Have mammogram yearly, bone density every 2-3 years and colonoscop y every 5-10 years depending on findings and history. Mammogram is scheduled for Monday. Engage in daily exercise of low impact aerobic exercise 45-60 minutes 4-5 times weekly. Avoid tobacco and illicit drugs as well as using moderation with alcohol intake less than 1-2 8 oz beverages daily. This lifestyle behavior pattern will lead to less health conditions and longer life span. If BMI greater than 25 weight watchers or dietary consult advised. Questions have been answered. Patient appears to understand instructio ns, but if you have any further questions call or respond to this email. Hyperpigme ntation of vulva [id number] N90.89 Pt has history of vitiligo and now has darkening of skin on different areas of her body including her groin. She has appt with derm for evaluation next month. [id number] Nora Bailon [place] [address] [address] 12/06/2021 16:20:14 12/07/2021 17:27:48 Gynecologic examination [id number] Z01.419 Z11.51 Take Calcium with Vitamin D 12-1500mg daily. Do monthly self breast exams. It is advised to get annual flu shot in the fall and she could obtain at [facility] or [facility] care clinic. If you haven't received the Tdap vaccine in the last 10 years you should obtain one as well. Have mammogram yearly, bone density every 2-3 years and colonoscop y every 5-10 years depending on findings and history. Mammogram is scheduled for Monday. Mammogram already done. Order given for bone density. Engage in daily exercise of low impact aerobic exercise 45-60 minutes 4-5 times weekly. Avoid tobacco and illicit drugs as well as using moderation with alcohol intake less than 1-2 8 oz beverages daily. This lifestyle behavior pattern will lead to less health conditions and longer life span. If BMI greater than 25 weight watchers or dietary consult advised. Questions have been answered. Patient appears to understand instructio ns, but if you have any further questions call or respond to this email. [id number] [facility] [address] [address] 12/23/2022 09:35:30 12/23/2022 10:23:41 Gynecologic examination [id number] Z01.419 Take Calcium with Vitamin D 12-1500mg daily. Do monthly self breast exams. It is advised to get annual flu shot in the fall and she could obtain at [facility] or [facility] care clinic. If you haven't received the Tdap vaccine in the last 10 years you should obtain one as well. Have mammogram yearly, bone density every 2-3 years and colonoscop y every 5-10 years depending on findings and history. Engage in daily exercise of low impact aerobic exercise 45-60 minutes 4-5 times weekly. Avoid tobacco and illicit drugs as well as using moderation with alcohol intake less than 1-2 8 oz beverages daily. This lifestyle behavior pattern will lead to less health conditions and longer life span. If BMI greater than 25 weight watchers or dietary consult advised. Questions have been answered. Patient appears to understand instructio ns, but if you have any further questions call or respond to this email Pap/hpv sent USPSTF recommends against screening for cervical cancer in women older than 65yo, those who've had a hysterecto my for non-cancer indication s, & who have had adequate prior screening & are not otherwise at high risk for cervical cancer. STD Screen declinedGe netic Screen discussedC olon Screen UTD PCPDexa Screen UTD PCPRoutine Labs PCPMammo wnl for 2022 PCP [id number] RAVI Pearson [place] [address] [address] 04/29/2024 08:59:46 04/29/2024 10:44:54 Gynecologic examination [id number] Z01.419 WWEpostmen opausalpap updateddec lined STI screenmamm ogram UTD, due next olo noscopy UTDdexa order givenrouti ne labs UTD/PCP Do monthly self breast exams. It is advised to get annual flu shot in the fall and she could obtain at local pharmacy. If you haven't received the Tdap vaccine in the last 10 years you should obtain one as well. Have mammogram yearly, bone density every 2-3 years and stay up to date on colon cancer screening. Engage in regular exercise. Avoid tobacco and illicit drugs, This lifestyle behavior pattern will lead to less health conditions and longer life span. If BMI greater than 25 dietary consult advised. Questions have been answered. Screening for osteoporosis [id number] Z13.820 Health Concerns Section Related Observation LastModified by Organization Detai ls LastModified Time None Recorded Concern Status LastModified by Organization Details LastModified Time None Recorded Advance Directives Directive N: Payers Encounter Date Sequence Insurance Name Policy Number Policy Rand Covered Member ID Rand Member ID Guarantor Name 11/23/2020 2 [place] [id number] Jessica L Patek [id number] Jessica L Patek 12/23/2022 1 [place] [id number] Jessica L Patek [id number] Jessica L Patek 04/29/2024 1 [place] [id number] Jessica L Patek [id number] Jessica L Patek Notes Date Note Type Note Provider Name and Address Organization Details Recorded Time 11/23/2020 text/html Annual GYNReport ed bypatient.Menstrua l cycle:Menopausal Urinary symptoms:No hematuria; No incontinence Vulva:No genital lesion Vagina:Normal vaginal discharge Breast:No breast pain; No breast lump; No nipple discharge Sexual complaints:No sexual complaints; No pain during intercourse; Normal libido Menopausal Symptoms:No menopausal symptoms; Normal vaginal lubrication Psychological symptoms:No depression; No anxiety; No PMDD Nora munoz [facility] 11/23/2020 18:58:45 12/06/2021 text/html Annual GYNReport ed bypatient.Urinary symptoms:No hematuria; No incontinence Vulva:No genital lesion Vagina:Normal vaginal discharge Breast:No breast pain; No breast lump; No nipple discharge Sexual complaints:No sexual complaints; No pain during intercourse; Normal libido Menopausal Symptoms:No menopausal symptoms; Normal vaginal lubrication Psychological symptoms:No depression; No anxiety; No PMDD Nora munoz [facility] 12/29/2021 06:32:46 12/23/2022 text/html Annual Technical Analyst Post-MenopausalRep orted bypatient.Menopaus al Symptoms:no menopausal symptoms; normal vaginal lubrication Vaginal Bleeding:history of menopause having occurred; no history of post menopausal bleeding Urinary Symptoms:no hematuria; no incontinence; no nocturia; no urinary frequency Vulva:no genital lesion; no vulvar atrophy Vagina:normal vaginal discharge; no vaginal atrophy Breast:no breast lump; no nipple discharge; no breast pain Sexual Complaints:no sexual complaints Psychological Symptoms:no depression; no anxiety Preventive Measures:encourage regular mammograms starting age 40; encourage self breast examination; encourage regular exercise; encourage no tobacco use; mammogram performed within the past year; history of recent colonoscopy RAVI Tang- [address], [place], [address], [facility] 12/23/2022 10:22:38 04/29/2024 text/html Annual Technical Analyst Post-MenopausalRep orted bypatient.Menopaus al Symptoms:no menopausal symptoms; normal vaginal lubrication Vaginal Bleeding:history of menopause having occurred; no history of post menopausal bleeding Urinary Symptoms:no hematuria; no incontinence; no nocturia; no urinary frequency Vulva:no genital lesion; no vulvar atrophy Vagina:normal vaginal discharge; no vaginal atrophy Breast:no breast lump; no nipple discharge; no breast pain Sexual Complaints:no sexual complaints Psychological Symptoms:no depression; no anxiety Preventive Measures:encourage regular mammograms starting age 40; encourage self breast examination; encourage regular exercise; encourage no tobacco useNotes:63yo WWElast pap 12/2023 : nilm, HPV (-)mammogram UTD, olonoscopy UTD, exa 2021 - osteopenia sees urologist yearly, on vaginal estrogen cream - doing well, no issues RAVI Pearson [address], [place], [address], [facility] 04/29/2024 10:17:43 OBGyn Episode Ob Episode Information Episode Created Date Number of Fetuses Patient Bloodtype Patient rh Status Prepregnancy Weight lbs Domestic Partner Domestic Partner Phone Father Name Supervisor Assembling Status 11/20/19 21 1 CLOSED Fetus Data First Name Last Name Admitted to NICU Weight (g) Sex Living Outcome Pediatric Complications Fetus ID Race Codes Race Delivery Type F [id number] Vaginal Delivery Hal Calculation Initial Hal Date Initial Exam Date Initial Exam Provider Initial Ultrasound Date Last Menstrual Period Date Ultra Sound Weeks Gestation 0 Eighteen To Twenty Week Hal Update Ultra Sound Date Fundal Height At Umbil Quickening Date Ultra Sound Latest Weeks Gestation Final Hal Confirmed By Final Hal Confirmed Date Final Hal Date Ultra Sound Latest Days Gestation 0 0 Menstrual History Last Menstrual Date Menses Monthly On Bcp Conception Prior Menses Frequency Hcg Plus Date Menarche Onset Age Delivery Information Delivery Date Delivery Type Labor Anesthesia Weeks Gestation Incision Type Labor Labor Length Hrs Delivered By Post Complications Tubal Sterilization Discharge Date Comments 2 Discharge Information Feeding Method Contraceptive Method Maternal HG B and HCT Levels
--- OUTSIDE RECORDS SUMMARY | 2024-11-22 07:22 | XMS_ITS | Clinical Summary ---
Author Organization [facility] Address [address] [place] [address] Care Team Providers Care Air Filler Name Role Phone Unavailable Primary Care Provider Unavailabl e Social History Tobacco Use Types Packs/Day Years Used Date Smoking Tobacco: Never Assessed Comments Unknown Sex and Gender Information Value Date Recorded Sex Assigned at Not on file Legal Sex Female 7:37 PM CDT Gender Identity Not on file Sexual Orientation Not on file Plan of Treatment Health Maintenance Due Date Last Done Comments Colorectal Cancer Screening Colonoscopy (10 Years) 1960 Hepatitis C 1976 DTaP, Tdap and Td Vaccines ( 1 - Tdap) 1977 Mammogram Screening 1998 Zoster Vaccines (1 of 2) 2008 Dexa Scan (General) 2023 Pneumococcal Vaccine: 65+ Ye ars (1 of 1 - PCV) 2023 COVID-19 Vaccine ( - 2023-2 5 season) 2024 Influenza Adult (#1) 2024 RSV Immunization or 60+ Years (1 - 1-dose 75+ series) 2033 Meningococcal B Vaccine Aged Out No l onger eligible based on patient's age to complete this topic Meningococcal Vaccine Aged Out No dante skip eligible based on patient's age to complete this topic RSV Immunizations Under 20 Months Aged Out No longer eligible based on patient's age to complete this topic Insurance [facility] [address] [facility]
== END 2024-11-22 07:14 | disposition home or self-care (01) ==
PROVIDERS: PCP Family Medicine; Visit Provider Nurse Practitioner Adult Health
DX: M85.88 Other specified disorders of bone density and structure, other site (principal); M85.852 Other specified disorders of bone density and structure, left thigh
CPT/HCPCS: 77080

== ENCOUNTER 2024-12-27 15:47 | Outpatient (CLI) | payer BC, SELFPAY ==
--- NOTE | ~2024-12-27 | MM_ITS ---
EXAMINATION: MM screening [facility] BI w js HISTORY: Screening TECHNIQUE: Craniocaudal and mediolateral oblique 3-D tomosynthesis images were obtained and synthetic 2-D images were generated. CAD analysis was submitted and interpreted. COMPARISON: 01/26/2024 and dating back to 05/14/2020 BREAST PARENCHYMAL COMPOSITION: There are scattered areas of fibroglandular density. FINDINGS: Redemonstration of a simple cyst within the lower inner left breast, decreased in size from prior. Punctate calcifications are detected bilaterally, stable and benign in appearance. Stable parenchymal pattern without suspicious microcalcifications, architectural distortion, addition al discrete masses or significant asymmetry. IMPRESSION: 1. No mammographic evidence of malignancy. 2. Recommend routine screening mammography in one year. BI-RADS Category 2: Benign finding(s). Reviewed, dictated and finalized at location A.
== END 2024-12-27 15:48 | disposition home or self-care (01) ==
PROVIDERS: PCP Obstetrics & Gynecology; Visit Provider Family Medicine
DX: Z12.31 Encounter for screening mammogram for malignant neoplasm of breast (principal)
CPT/HCPCS: 77063; 77067